=== PATIENT | male | born 1965 | race Caucasian/White ===

== ENCOUNTER 2018-12-21 15:54 | Inpatient (IN) | payer OTHER ==
[~2018-12-21] VITALS: Ht 180.3 cm; Wt 123.8 kg
--- NOTE | 2018-12-21 16:20 | NUR ---
damien came in with the c/o "Cough/congestion/fever started saturday. Not better". on room air, breathing evenly and unlabored. connected to the monitor and pulse ox. kept comfortable, will continue to monitor accordingly.
[2018-12-21 17:28] LABS: CALCIUM, SERUM 8.7 mg/dL (8.5-10.1); CARBON DIOXIDE 23 mmol/L (21-32); CHLORIDE 95 mmol/L (98-107); CREATININE 2.7 mg/dL (0.6-1.3); GLUCOSE 106 mg/dL (74-106); POTASSIUM 4.7 mmol/L (3.5-5.1); SODIUM SERUM 131 mmol/L (136-145); UREA NITROGEN, BLOOD 37 mg/dL (7-18)
[2018-12-21] MEDS ORDERED: ACETAMINOPHEN ES 500 MG TABLET PO ONE (17:30)
[2018-12-21] MEDS ORDERED: ALBUTEROL FS 2.5 MG/3 ML VIAL.NEB NEB ONE (17:30)
[2018-12-21] MEDS ORDERED: IV NS 0.9% 1,000 ML BAG IV ONE (17:30)
[2018-12-21] MEDS ORDERED: IPRATROPIUM NEB FS 0.5 MG/2.5 ML AMPUL.NEB NEB ONE (17:30)
[2018-12-21 17:35] LABS: ALANINE AMINOTRANSFERASE 44 U/L (12-78); ALBUMIN 3.5 g/dL (3.4-5.0); ALKALINE PHOSPHATASE 59 U/L (46-116); ASPARTATE AMINOTRANSFERASE 24 U/L (15-37); BILIRUBIN,DIRECT 0.3 mg/dL (0.0-0.2); BILIRUBIN,TOTAL 1.4 mg/dL (0.2-1.0); TOTAL PROTEIN, SERUM 6.9 g/dL (6.4-8.2)
[2018-12-21] MEDS ORDERED: ACETAMINOPHEN ES 500 MG TABLET ONE (17:36)
[2018-12-21 17:48] LABS: BASOPHILS % (AUTO) 0.1 % (0.0-2.0); HEMATOCRIT 38 % (39-51); LYMPHOCYTES # (AUTO) 0.4 /CMM (0.8-4.8); LYMPHOCYTES % (AUTO) 2.9 % (20.0-44.0); MEAN CORPUSCULAR HGB CONC 35 g/dl (31.0-36.0); MEAN CORPUSCULAR VOLUME 93 fL (80-96); MONOCYTES # (AUTO) 0.9 /CMM (0.1-1.30); NEUTROPHILS # (AUTO) 11.9 /CMM (1.8-8.9); PLATELET COUNT (AUTO) 106 /CMM (150-450); RED BLOOD CELL COUNT(AUTO) 4.07 MIL/uL (4.5-6.0); WHITE BLOOD COUNT (AUTO) 13.3 K/uL (4.3-11.0)
[2018-12-21] MEDS ORDERED: IPRATROPIUM NEB FS 0.5 MG/2.5 ML AMPUL.NEB ONE (17:56)
[2018-12-21] MEDS ORDERED: ALBUTEROL FS 2.5 MG/3 ML VIAL.NEB ONE (17:56)
[2018-12-21] MEDS ORDERED: ATOR40TA PO (19:07)
[2018-12-21] MEDS ORDERED: LURA40TA PO (19:07)
[2018-12-21] MEDS ORDERED: HYDR25TA4 PO (19:07)
[2018-12-21] MEDS ORDERED: LISI10TA5 PO (19:07)
[2018-12-21] MEDS ORDERED: GUAN4TAB3 PO (19:07)
[2018-12-21] MEDS ORDERED: LANS30CA56 PO (19:07)
[2018-12-21] MEDS ORDERED: ASPI-1395 PO (19:07)
[2018-12-21] MEDS ORDERED: BUPR300T54 PO (19:07)
--- NOTE | 2018-12-21 19:24 | NUR ---
Chiquis ellington in [facility] - 12/21/18 at 1925 by CASSY Denia CHANG)
--- NOTE | 2018-12-21 19:25 | NUR ---
MEHUL ([facility])
--- NOTE | 2018-12-21 19:27 | NUR ---
endorsed to Otoniel PETERS for salvador.
[2018-12-21] MEDS ORDERED: LEVOFLOXACIN 500 MG /D5W 100ML 500 MG/100 ML PIGGYBACK IV ONE (20:00)
--- NOTE | 2018-12-21 20:24 | NUR ---
URINE COLLECTED AND SENT TO LAB
[2018-12-21] MEDS ORDERED: LEVOFLOXACIN 500 MG /D5W 100ML 100 ML IV ONE (20:25)
[2018-12-21 20:47] LABS: APPEARANCE,URINE CLEAR (CLEAR); BILIRUBIN,URINE NEGATIVE (NEGATIVE); BLOOD, URINE NEGATIVE Ery/uL (NEGATIVE); COLOR,URINE YELLOW (YELLOW); KETONES,URINE TRACE (NEGATIVE); LEUKOCYTE ESTERASE ,URINE NEGATIVE (NEGATIVE); NITRITE, URINE NEGATIVE (NEGATIVE); PH,URINE 6.5 (5.0-8.0); PROTEIN,URINE NEGATIVE (NEGATIVE); UGLUCOSE NEGATIVE (NEGATIVE)
[2018-12-21 20:53] LABS: BACTERIA,URINE None seen /HPF (None Seen); RBC,URINE 0-2 /HPF (0-2); SQUAMOUS EPITHELIAL CELL,UR 0-2 /HPF (None Seen); WBC,URINE 0-2 /HPF (0-3)
[2018-12-21] MEDS ORDERED: ONDANSETRON HCL/PF 4 MG/2 ML VIAL IVP PRN (21:00)
[2018-12-21] MEDS ORDERED: MAG HYDROX/AL HYDROX/SIMETH 30 ML UDC PO PRN (21:00)
[2018-12-21] MEDS ORDERED: MAGNESIUM HYDROXIDE 30 ML UDC PO PRN (21:00)
[2018-12-21] MEDS ORDERED: Z GUARD REMEDY 2 OZ OINT TP PRN (21:00)
--- NOTE | 2018-12-21 21:37 | NUR ---
REPORT GIVEN TO LORRAINE GAGNON FOR SKINNY
[2018-12-21 21:41] VITALS: BP 92/53
--- NOTE | 2018-12-21 21:50 | NUR ---
CRIMINAL PSYCHOLOGIST OPENING NOTES: RECEIVED PT ON ROOM AIR WITH FRIEND AT BEDSIDE. NO SOB NOTED. PT JUST COMPLAINING OF BODY ACHES AND CHILLS. PT HAS IV ON L AC#18G AND IS BEING INFUSED WITH LEVAQUIN AT THIS TIME. PT ALSO HAS IV ON R AC #18G AND IS PATENT AND INTACT. PT TO BE STARTED ON IV FLUIDS AND PLACED ON TELE MONITOR. PT COMPLAINING OF L HIP 8/10 PAIN. BED KEPT IN LOW, LOCKED POSITION, AND SIDE RAILS X 2UP. WILL CONTINUE TO MONITOR PT.
[2018-12-21] MEDS: HYDROCODONE/APAP 5/325MG 1 EACH TABLET PO PRN (22:08)
--- NOTE | 2018-12-21 22:10 | NUR ---
PEARL GLUE DRIER NOTES: PT COMPLAINING OF L HIP 8/10 PAIN. PT WAS ADMINISTERED NORCO 5 PO. ALSO, PT TO GO DOWN FOR X RAY SO HE WOULD LIKE TO BE PAIN MEDICATED BEFORE LEAVING. WILL CONTINUE TO MONITOR.
--- NOTE | 2018-12-21 22:13 | NUR ---
MACHINE I COREMAKER NOTES: DISTRIBUTION SYSTEMS SUPERINTENDENT ACCOMPANIED HIM DOWNSTAIRS FOR X RAY IN WHEELCHAIR.
[2018-12-21] MEDS: IV NS 0.9% 1,000 ML IV PRN (22:38)
--- NOTE | 2018-12-21 23:11 | NUR ---
DECORATING KILN OPERATOR NOTES: PT BACK FROM X RAY.
[2018-12-21] MEDS: ATORVASTATIN 40 MG TABLET PO SCH (23:20)
--- NOTE | 2018-12-21 23:30 | NUR ---
MUSIC BOX MECHANIC NOTES: DR. SPENCER AWARE THAT PT IS ST 110-130S ON MONITOR. NO NEW ORDERS FOR NOW.
--- NOTE | 2018-12-21 23:34 | NUR ---
NM:LUNG V/Q WAS COMPLETED. TECH:RB.
[2018-12-21 23:38] VITALS: BP 92/53
--- NOTE | 2018-12-21 23:47 | NUR ---
SILVERWARE BUFFING MACHINE OPERATOR NOTES: AWAITING FOR ZITHROMAX 500MG IV FROM NURSING SECOND HELPER.
[2018-12-22] VITALS: BP 100/55
--- NOTE | 2018-12-22 00:34 | NUR ---
HIDE SALTER NOTES: AWAITING FOR ZITHROMAX 500MG FROM NURSING DISASTER RECOVERY SPECIALIST. CALLED. NO WINE MAKER.
--- NOTE | 2018-12-22 01:00 | NUR ---
BUSBOY NOTES: DR. SPENCER AT BEDSIDE. ALSO, MADE HIM AWARE THE LUNG SCAN IS PENDING.
[2018-12-22] MEDS ORDERED: AZITHROMYCIN 500 MG VIAL ONE (01:09)
[2018-12-22] MEDS: ACETAMINOPHEN 325 MG TABLET PO PRN (01:26)
--- NOTE | 2018-12-22 01:30 | NUR ---
LOCK AND DAM REPAIRER NOTES: TYLENOL 650MG PO WAS ADMINISTERED BY ANOTHER RN, GHADA FOR A TEMP OF 101.9 ; WILL CONTINUE TO MONITOR
[2018-12-22] MEDS: AZITHROMYCIN 500 MG in IV D5W 250 ML IV SCH ×2 (01:32→21:18)
--- NOTE | 2018-12-22 01:32 | NUR ---
DOUGHNUT FRYER NOTES: LATE ADMIN OF ZITHROMAX. JUST RECEIVED IV.
[2018-12-22 04:23] VITALS: BP_SYST 101; BP_SYST 106; BP_DIAS 51; BP_DIAS 63
--- NOTE | 2018-12-22 04:30 | NUR ---
RELAY SHOP TESTER NOTES: COOLING MEASURES TAKEN PLACE; ICE PACKS PLACED IN BILATERAL UNDERARM AND GROIN AREA. BLANKETS REMOVED WELL. ROOM TEMP SET TO COOL. WILL CONTINUE TO MONITOR TEMP.
[2018-12-22] MEDS: HYDROCODONE/APAP 5/325MG 1 EACH TABLET PO PRN ×4 (05:00→21:27)
--- NOTE | 2018-12-22 05:09 | NUR ---
WASTEWATER SUPERINTENDENT NOTES: NOTIFIED DR. SPENCER THAT PT HAS TEMP 102.4 EVEN WITH COOLING MEASURES TAKEN PLACE AND TYLENOL 650MG GIVEN. NO NEW ORDERS AT THIS TIME. WILL CONTINUE TO MONITOR.
--- NOTE | 2018-12-22 06:44 | NUR ---
SANDWICH ARTIST CLOSING NOTES: ALL NEEDS WERE ATTENDED AND ANTICIPATED FOR. PT KEPT CLEAN, DRY, AND COMFORTABLE. PT RESTING IN BED COMFORTABLY AT THIS TIME. NO SOB NOTED. NO S/S OF DISTRESS. PT SAID BODY ACHES WENT DOWN WITH NORCO 5 THAT WAS ADMINISTERED. PT ON TELE MONITOR AND READING SHOWS ST 130S. PT HAS IV ON LAC #18G AND IS BEING INFUSED WITH IV NS AT 100ML/HR. BED KEPT IN LOW, LOCKED POSITION, AND SIDE RAILS X 2UP. WILL ENDORSE TO AM NURSE FOR SKINNY.
[2018-12-22 07:40] LABS: EOSINOPHILS % (AUTO) 0.1 % (0.0-6.0); HEMATOCRIT 32 % (39-51); HEMOGLOBIN 11.4 g/dL (13.5-17.5); LYMPHOCYTES # (AUTO) 0.2 /CMM (0.8-4.8); LYMPHOCYTES % (AUTO) 2.3 % (20.0-44.0); MEAN CORPUSCULAR HGB CONC 35 g/dl (31.0-36.0); MEAN CORPUSCULAR VOLUME 92 fL (80-96); MONOCYTES # (AUTO) 0.7 /CMM (0.1-1.30); MONOCYTES % (AUTO) 7.8 % (2.0-12.0); NEUTROPHILS # (AUTO) 7.6 /CMM (1.8-8.9); NEUTROPHILS % (AUTO) 89.8 % (43.0-81.0); PLATELET COUNT (AUTO) 82 /CMM (150-450); WHITE BLOOD COUNT (AUTO) 8.5 K/uL (4.3-11.0)
[2018-12-22 07:47] LABS: CALCIUM, SERUM 7.5 mg/dL (8.5-10.1); CREATININE 1.9 mg/dL (0.6-1.3); MAGNESIUM 1.4 mg/dL (1.8-2.4); PHOSPHORUS 2.6 mg/dL (2.5-4.9); POTASSIUM 3.9 mmol/L (3.5-5.1)
[2018-12-22 08:00] VITALS: BP 115/51
--- NOTE | 2018-12-22 08:00 | NUR ---
RN NOTES RECEIVED PATIENT IN THE BED RESTING, A/O X4. PATIENT TELE ST- 110, PATIENT WAS COMPLAINING OF GENERALIZED PAIN. ENCOURAGED TO EXPRESS FEELINGS, AND CONCERNS. PER PATIENT UNABLE TO DESCRIBE HOW IS HE FEELING. V/S TAKEN STABLE. INFUSING NS AT 100 ML/HR ON LEFT AC AREA INTACT. PATIENT USING URINAL, CALL LIGHT WITHIN TO REACH. SEEN BY HOSPITALIST Dr SAMSON. CONTINUED MONITORING.
[2018-12-22] MEDS: Magnesium 1GM/D5W 100ML PREMIX 100 ML IV SCH ×4 (08:37→12:30)
[2018-12-22] MEDS: ASPIRIN EC 81 MG TABLET.DR PO SCH (08:37)
[2018-12-22] MEDS: BUPROPION XL 150 MG TAB.ER.24 PO SCH (08:37)
--- NOTE | 2018-12-22 09:20 | NUR ---
rn notes ADMINISTERED NARCO 5/325 MG PO PRN FOR GENERALIZED PAIN 12/10 PER PATIENT REQUEST, V/S TAKEN BP 134/66, P-129. INFUSING MG 100 MG/ML HR AT THIS TIME. CALL LIGHT WITHIN TO REACH, CONTINUED MONITORING.
[2018-12-22 09:41] LABS: BAND % (MANUAL) 21 % (0.0-5.0); EOSINOPHILS % (MANUAL) 2 % (0-4); LYMPHOCYTES % (MANUAL) 2 % (16-48); MONOCYTES % (MANUAL) 7 % (0-11.0); NEUTROPHILS % (MANUAL) 68 (42-76)
--- NOTE | 2018-12-22 11:01 | NUR ---
RN NOTES MEDICATION WERE ADMINISTERED FOR PAIN EFFECTIVE. PER HAIR SPINNER D/C TELE TO MED [facility]. CONTINUED MONITORING.
[2018-12-22 16:00] VITALS: BP_SYST 101; BP_SYST 97; BP_DIAS 40; BP_DIAS 50
--- NOTE | 2018-12-22 16:34 | NUR ---
rn notes Administered narco 5/325 mg po prn for lower abdominal pain 12/10 per patient s request, v/s taken bp , also get order for breathing treatment q 4 hr. bp-97/50, p-123. continued monitoring. patient on o2-2l nc. call light within to reach, continued monitoring.
[2018-12-22] MEDS: ALBUTEROL FS 2.5 MG/0.5 ML VIAL.NEB NEB SCH ×2 (17:08→20:47)
[2018-12-22 17:21] LABS: CREATININE, URINE 202.1 MG/DL (30.0-125.0)
--- NOTE | 2018-12-22 17:57 | NUR ---
RN NOTES MEDICATION WERE ADMINISTERED FOR PAIN EFFECTIVE, ALS PATIENT TAKE BREATHING TREATMENT BY RT. CHEST X-RAY DONE BY 2 VIEWS. PATIENT EATING DINNER. CALL LIGHT WITHIN TO REACH. CONTINUED MONITORING.
[2018-12-22] MEDS: IV NS 0.9% 1,000 ML IV PRN (18:51)
--- NOTE | 2018-12-22 19:30 | NUR ---
MS RN OPENING NOTES: RECEIVED PT ON 2LPM VIA NC AND IS TOLERATING WELL. NO S/S OF DISTRESS AT THIS TIME. "I FEEL BETTER THAN I DID LAST NIGHT." PT HAS IV ON R FOREARM #22G AND IS BEING INFUSED WITH IV NS AT 100ML/HR. BED KEPT IN LOW, LOCKED POSITION, AND SIDE RAILS X 2UP. WILL CONTINUE TO MONITOR PT.
[2018-12-22] MEDS: LEVOFLOXACIN 750 MG /D5W 150ML 750 MG in PREMIX 1 EA IV SCH (20:00)
[2018-12-22 20:12] VITALS: BP 94/61
[2018-12-22] MEDS: ATORVASTATIN 40 MG TABLET PO SCH (21:18)
--- NOTE | 2018-12-22 21:29 | NUR ---
MS RN NOTES: PT COMPLAINING OF BILATERAL LEG 9/10 PAIN. PT WAS ADMINISTERED NORCO 5 PO. WILL CONTINUE TO MONITOR.
[2018-12-23] MEDS: ALBUTEROL FS 2.5 MG/0.5 ML VIAL.NEB NEB SCH ×7 (00:02→23:30)
--- NOTE | 2018-12-23 01:25 | NUR ---
MS RN NOTES: PAGED DR. SPENCER. AWAITING FOR CALLBACK.
[2018-12-23] MEDS ORDERED: TEMAZEPAM 15 MG CAPSULE PO PRN (01:30)
--- NOTE | 2018-12-23 01:31 | NUR ---
MS RN NOTES: INFORMED DR. SPENCER THAT PT IS VERY IRRITABLE AND WANTS TO GO TO SLEEP. GOT ORDER FOR RESTORIL 15MG PO ONE TIME ORDER ONLY.
[2018-12-23] MEDS ORDERED: TEMAZEPAM 15 MG CAPSULE PO ONE (02:00)
[2018-12-23] MEDS: HYDROCODONE/APAP 5/325MG 1 EACH TABLET PO PRN ×2 (05:12→12:48)
[2018-12-23 05:14] VITALS: BP 110/55
--- NOTE | 2018-12-23 05:15 | NUR ---
MS RN NOTES: PT COMPLAINING OF 8/10 BILATERAL LOWER LEG PAIN. PT WAS ADMINISTERED NORCO 5 PO. WILL CONTINUE TO MONITOR.
[2018-12-23] MEDS: IV NS 0.9% 1,000 ML IV PRN ×2 (05:26→20:41)
--- NOTE | 2018-12-23 06:37 | NUR ---
MS RN CLOSING NOTES: ALL NEEDS WERE ATTENDED AND ANTICIPATED FOR. PT SITTING UP IN BED AT THIS TIME. PT ON 2LPM VIA NC AND IS TOLERATING WELL. PT IRRITABLE AND WOULD LIKE TO GO HOME. PT HAS IV ON R FOREARM #22G AND IS BEING INFUSED WITH IV NS AT 100ML/HR. BED KEPT IN LOW, LOCKED POSITION, AND SIDE RAILS X 2UP. PAIN MANAGED WITH NORCO 5 PO GIVEN AT 0512AM. WILL ENDORSE TO AM NURSE FOR SKINNY.
[2018-12-23 06:41] LABS: CALCIUM, SERUM 7.9 mg/dL (8.5-10.1); CREATININE 1.5 mg/dL (0.6-1.3); POTASSIUM 3.6 mmol/L (3.5-5.1)
--- NOTE | 2018-12-23 07:30 | NUR ---
RN OPENING NOTES PT AWAKE AND SITTING AT SIDE OF BED. NO COMPLAINTS OF PAIN, SOB OR DISTRESS AT THIS TIME. PT HAS A RIGHT FOREARM #22 IV INTACT AND RUNNING NS @100ML/HR. SAFETY PRECAUTIONS IN PLACE, BED IN LOWEST LOCKED POSITION, X2 SIDE RAILS UP AND CALL LIGHT WITHIN REACH. WILL CONTINUE TO MONITOR.
[2018-12-23 08:00] VITALS: BP 104/69
[2018-12-23] MEDS: ASPIRIN EC 81 MG TABLET.DR PO SCH (08:48)
[2018-12-23] MEDS: LACTOBACILLUS RHAMNOSUS GG 1 EACH CAP.SPRINK PO SCH ×2 (08:48→16:20)
[2018-12-23] MEDS: BUPROPION XL 150 MG TAB.ER.24 PO SCH (08:48)
[2018-12-23 16:00] VITALS: BP 104/57
--- NOTE | 2018-12-23 18:21 | NUR ---
RN CLOSING NOTES PT AWAKE AND SITTING IN CHAIR AT SIDE OF BED. ALL PATIENT NEEDS MET DURING SHIFT. PT HAS A RIGHT FOREARM #22 IV INTACT AND RUNNING NS @100ML/HR. SAFETY PRECAUTIONS IN PLACE, BED IN LOWEST LOCKED POSITION, X2 SIDE RAILS UP AND CALL LIGHT WITHIN REACH. WILL CONTINUE ENDORSE TO THERAPEUTIC RECREATION SPECIALIST NURSE FOR CONTINUITY OF CARE.
[2018-12-23] MEDS: ACETAMINOPHEN 325 MG TABLET PO PRN (19:43)
[2018-12-23 20:00] VITALS: BP 94/60
--- NOTE | 2018-12-23 20:07 | NUR ---
MS/TELE/RN ON INITIAL ROUND AT 1940, PATIENT WAS AWAKE, ALERT, ORIENTED, WITH C/O LEG PAIN AND REQUESTED TYLENOL. TYLENOL 650 MG PO WAS GIVEN ORDERED. WILL MONITOR.
[2018-12-23] MEDS: LEVOFLOXACIN 750 MG /D5W 150ML 750 MG in PREMIX 1 EA IV SCH (21:04)
[2018-12-23] MEDS: AZITHROMYCIN 500 MG in IV D5W 250 ML IV SCH (22:22)
[2018-12-23] MEDS: ATORVASTATIN 40 MG TABLET PO SCH (22:22)
[2018-12-24] MEDS: ACETAMINOPHEN 325 MG TABLET PO PRN ×2 (02:05→08:55)
[2018-12-24] MEDS: ALBUTEROL FS 2.5 MG/0.5 ML VIAL.NEB NEB SCH ×6 (03:15→23:30)
--- NOTE | 2018-12-24 06:12 | NUR ---
MS/TELE/RN PATIENT IS AWAKE, IS IN THE NURSING STATION AT THIS TIME, NO CHANGE IN CONDITION, HAD AN ON AND OFF SLEEP THE WHOLE SHIFT. ALL NEEDS ATTENDED AT THIS TIME. WILL CONTINUE TO MONITOR.
[2018-12-24 06:38] LABS: CALCIUM, SERUM 7.8 mg/dL (8.5-10.1); CREATININE 1.5 mg/dL (0.6-1.3); MAGNESIUM 2.3 mg/dL (1.8-2.4); PHOSPHORUS 2.1 mg/dL (2.5-4.9); POTASSIUM 3.4 mmol/L (3.5-5.1)
[2018-12-24 06:39] LABS: BASOPHILS % (AUTO) 0.2 % (0.0-2.0); EOSINOPHILS % (AUTO) 0.1 % (0.0-6.0); HEMATOCRIT 26 % (39-51); HEMOGLOBIN 9.5 g/dL (13.5-17.5); LYMPHOCYTES # (AUTO) 0.4 /CMM (0.8-4.8); MEAN CORPUSCULAR HGB CONC 36 g/dl (31.0-36.0); MEAN CORPUSCULAR VOLUME 92 fL (80-96); MONOCYTES # (AUTO) 0.5 /CMM (0.1-1.30); MONOCYTES % (AUTO) 8.7 % (2.0-12.0); NEUTROPHILS # (AUTO) 4.3 /CMM (1.8-8.9); PLATELET COUNT (AUTO) 65 /CMM (150-450); RED BLOOD CELL COUNT(AUTO) 2.88 MIL/uL (4.5-6.0); WHITE BLOOD COUNT (AUTO) 5.2 K/uL (4.3-11.0)
--- NOTE | 2018-12-24 07:28 | NUR ---
RN OPENING NOTE PT RECEIVED IN BED AT LOWEST AND LOCKED POSITION WITH SIDE RAILS UP X2, A/O X4 BREATHING EVEN AND UNLABORED ON 2L VIA NC, NO S/S OF ANY DISTRESS OR PAIN NOTED AT THIS TIME, IV IS PATENT AND INTACT BUT FLUIDS NOT CURRENTLY RUNNING DUE TO PT WANTING TO WALK AROUND THE UNIT, SAFETY PRECAUTIONS IN PLACE, CALL LIGHT WITHIN REACH, WILL MONITOR ACCORDINGLY
[2018-12-24 07:38] LABS: BAND % (MANUAL) 1 % (0.0-5.0); LYMPHOCYTES % (MANUAL) 9 % (16-48); MONOCYTES % (MANUAL) 5 % (0-11.0); NEUTROPHILS % (MANUAL) 84 (42-76); REACTIVE LYMPHOCYTES 1 % (0-0)
[2018-12-24 08:00] VITALS: BP 94/54
--- NOTE | 2018-12-24 08:00 | NUR ---
RN NOTE PT WANTED WALLET TO BE BROUGHT BACK UP FROM SAFE. WALLET BROUGHT BACK UP TO PT AT THIS TIME. INFORMED THAT THE NURSING PRECISION CROP MANAGER BEST SAID THAT WE WOULD NOT BE LIABLE IF HIS WALLET IS LOST BECAUSE HE REQUESTED IT TO BE REMOVED FROM THE SAFE. HE WAS MADE AWARE AND HE CONSENT AND WAS OKAY WITH IT. WALLET GIVEN.
[2018-12-24] MEDS: LACTOBACILLUS RHAMNOSUS GG 1 EACH CAP.SPRINK PO SCH ×2 (08:55→17:23)
[2018-12-24] MEDS: BUPROPION XL 150 MG TAB.ER.24 PO SCH (08:55)
[2018-12-24] MEDS: ASPIRIN EC 81 MG TABLET.DR PO SCH (08:55)
[2018-12-24] MEDS: DOCUSATE SODIUM 100 MG CAPSULE PO SCH ×2 (09:06→17:23)
[2018-12-24] MEDS: NICOTINE PATCH (7MG) 7 MG PATCH.TD24 TD SCH (09:25)
[2018-12-24] MEDS: ENSURE ENLIVE CHOC 237 ML CAN PO SCH ×2 (10:36→17:24)
[2018-12-24] MEDS ORDERED: POTASSIUM CHLORIDE 10 MEQ TABLET.SA PO ONE (11:00)
[2018-12-24] MEDS ORDERED: K PHOS NEUTRAL 250 MG TABLET PO ONE (13:00)
[2018-12-24] MEDS: HYDROCODONE/APAP 5/325MG 1 EACH TABLET PO PRN ×2 (13:43→23:06)
[2018-12-24] MEDS: IV NS 0.9% 1,000 ML IV PRN (15:58)
[2018-12-24 16:00] VITALS: BP 97/46
[2018-12-24] MEDS: CLINDAMYCIN 600 MG in IV D5W 50 ML IV SCH (17:24)
--- NOTE | 2018-12-24 18:44 | NUR ---
RN CLOSING NOTE PT IN BED AT LOWEST AND LOCKED POSITION WITH SIDE RAILS UP X2, A/O X4 BREATHING EVEN AND UNLABORED ON 2L VIA NC WITH NO S/S OF ANY DISTRESS OR PAIN AT THIS TIME, IV IS PATENT AND INTACT WITH IVF INFUSING, SAFETY PRECAUTIONS IN PLACE, CALL LIGHT WITHIN REACH, ALL NEEDS ATTENDED TO, WILL ENDORSE TO NIGHT RN FOR SKINNY.
[2018-12-24] MEDS: LORATADINE 10 MG TABLET PO SCH (18:50)
[2018-12-24] MEDS: diphenhydrAMINE HCL 25 MG CAPSULE PO PRN (18:50)
--- NOTE | 2018-12-24 19:59 | NUR ---
MS/BONNIE/RN ON INITIAL ROUND AT 0, RECEIVED PATIENT PATIENT IN HIS ROOM, ON HIS BED, AWAKE, ALERT, ORIENTED, COMFORTABLE, NO C/O PAIN, NO DISTRESS NOTED, CALL LIGHT IN REACH. WILL MONITOR.
[2018-12-24] MEDS ORDERED: AZITHROMYCIN 250 MG TABLET PO SCH (20:00)
[2018-12-24 20:25] VITALS: BP 125/66
[2018-12-24] MEDS: ATORVASTATIN 40 MG TABLET PO SCH (22:03)
[2018-12-25] MEDS: diphenhydrAMINE HCL 25 MG CAPSULE PO PRN (01:01)
--- NOTE | 2018-12-25 01:23 | NUR ---
MS/TELE/RN PATIENT IS SLEEPING, AROUSES EASILY, APPEAR COMFORTABLE, NO SIGNS OF DISTRESS NOTED, SITTER AT BEDSIDE. WILL CONTINUE TO MONITOR.
[2018-12-25] MEDS: CLINDAMYCIN 600 MG in IV D5W 50 ML IV SCH ×2 (02:03→09:17)
[2018-12-25] MEDS: ALBUTEROL FS 2.5 MG/0.5 ML VIAL.NEB NEB SCH ×4 (03:29→15:30)
[2018-12-25] MEDS: IV NS 0.9% 1,000 ML IV PRN (05:00)
--- NOTE | 2018-12-25 06:16 | NUR ---
MS/TELE/RN PATIENT IS SLEEPING, AROUSES EASILY, NO DISTRESS NOTED, CALL LIGHT IN REACH. ALL NEEDS ATTENDED AT THIS TIME, WILL CONTINUE TO MONITOR.
[2018-12-25 06:39] LABS: BASOPHILS % (AUTO) 0.1 % (0.0-2.0); EOSINOPHILS % (AUTO) 0.1 % (0.0-6.0); HEMATOCRIT 29 % (39-51); HEMOGLOBIN 10.2 g/dL (13.5-17.5); LYMPHOCYTES # (AUTO) 0.9 /CMM (0.8-4.8); LYMPHOCYTES % (AUTO) 14.6 % (20.0-44.0); MEAN CORPUSCULAR HGB CONC 36 g/dl (31.0-36.0); MEAN CORPUSCULAR VOLUME 92 fL (80-96); MONOCYTES # (AUTO) 0.8 /CMM (0.1-1.30); NEUTROPHILS # (AUTO) 4.6 /CMM (1.8-8.9); NEUTROPHILS % (AUTO) 72.2 % (43.0-81.0); PLATELET COUNT (AUTO) 93 /CMM (150-450); RED BLOOD CELL COUNT(AUTO) 3.14 MIL/uL (4.5-6.0); WHITE BLOOD COUNT (AUTO) 6.3 K/uL (4.3-11.0)
[2018-12-25 06:58] LABS: CALCIUM, SERUM 8.1 mg/dL (8.5-10.1); CREATININE 1.3 mg/dL (0.6-1.3); MAGNESIUM 2.1 mg/dL (1.8-2.4); PHOSPHORUS 2.4 mg/dL (2.5-4.9); POTASSIUM 3.3 mmol/L (3.5-5.1)
--- NOTE | 2018-12-25 07:52 | NUR ---
MS RN OPENING NOTES RECEIVED PATIENT IN BED IN MODERATE HIGH BACK REST. A/O X4. IVF ON LEFT HAND #20 WITH NS @ 100ML/HR. PATENT AND INTACT. NO COMPLAIN OF PAIN AT THIS TIME. SAFETY PRECAUTION IN PLACE, BED IN LOW LOCKED POSITION, SIDE RAILS UP X2. CALL LIGHT WITHIN EASY REACH. WILL CONTINUE TO MONITOR.
[2018-12-25 08:00] VITALS: BP 116/72
[2018-12-25] MEDS ORDERED: POTASSIUM CHLORIDE 20 MEQ TAB.PRT.SR PO ONE (08:00)
[2018-12-25 08:04] LABS: BAND % (MANUAL) 2 % (0.0-5.0); LYMPHOCYTES % (MANUAL) 16 % (16-48); MONOCYTES % (MANUAL) 12 % (0-11.0); NEUTROPHILS % (MANUAL) 70 (42-76)
[2018-12-25] MEDS: NICOTINE PATCH (7MG) 7 MG PATCH.TD24 TD SCH (08:10)
[2018-12-25] MEDS: ASPIRIN EC 81 MG TABLET.DR PO SCH (08:10)
[2018-12-25] MEDS: LORATADINE 10 MG TABLET PO SCH (08:11)
[2018-12-25] MEDS: DOCUSATE SODIUM 100 MG CAPSULE PO SCH (08:11)
[2018-12-25] MEDS: BUPROPION XL 150 MG TAB.ER.24 PO SCH (08:11)
[2018-12-25] MEDS: LACTOBACILLUS RHAMNOSUS GG 1 EACH CAP.SPRINK PO SCH (08:11)
[2018-12-25] MEDS: ENSURE ENLIVE CHOC 237 ML CAN PO SCH (08:16)
[2018-12-25] MEDS ORDERED: DIPH25CA49 PO (08:36)
[2018-12-25] MEDS ORDERED: LORA10TA7 PO (08:36)
[2018-12-25] MEDS ORDERED: LACT1CAP72 PO (08:36)
[2018-12-25] MEDS ORDERED: CLIN300C11 PO (08:36)
--- NOTE | 2018-12-25 08:55 | NUR ---
RN NOTES PT WITH LOW LEVEL POTASSIUM 3.3 TODAY, ADMINISTERED K-DUR 20 MEQ P.O. ORDERED. WILL CONTINUE TO MONITOR.
[2018-12-25] MEDS ORDERED: K PHOS NEUTRAL 250 MG TABLET PO ONE (11:30)
--- NOTE | 2018-12-25 12:15 | NUR ---
MS RN DISCHARGED NOTES PATIENT DISCHARGED TO HOME IN STABLE CONDITION. A/O X 4. ABLE TO MAKE NEEDS KNOWN. V/S TAKEN, STABLE AND RECORDED. PATIENT'S IV ACCESS REMOVED AND APPLIED PRESSURE DRESSING. SKIN IS INTACT. NAME ARM BAND REMOVED. ALL BELONGINGS CHECKED AND SIGNED. HEALTH TEACHINGS/DISCHARGED INSTRUCTIONS GIVEN AND VERBALIZED UNDERSTANDING. PATIENT LEFT UNIT VIA WHEELCHAIR WITH NO ACUTE SIGNS OF DISTRESS @ 1210 ACCOMPANIED BY HOSPITAL STAFF. CHARGE NURSE AWARE OF DISCHARGED.
== END 2018-12-25 12:10 | disposition home or self-care (01) | DRG 720 ==
LOC: ER 15:58 → TELE 20:54 → MED 12-22 13:02
PROVIDERS: ADMIT Internal Medicine; ATTEND Student in an Organized Health Care Education/Training Program
DX: A41.9 Sepsis, unspecified organism (principal); J96.01 Acute respiratory failure with hypoxia; E43 Unspecified severe protein-calorie malnutrition; N17.0 Acute kidney failure with tubular necrosis; E86.0 Dehydration; Z68.38 Body mass index [BMI] 38.0-38.9, adult; J02.0 Streptococcal pharyngitis; F32.9 Major depressive disorder, single episode, unspecified; F41.9 Anxiety disorder, unspecified; E78.5 Hyperlipidemia, unspecified; E83.42 Hypomagnesemia; J45.909 Unspecified asthma, uncomplicated; E66.9 Obesity, unspecified; Z88.0 Allergy status to penicillin; I12.9 Hypertensive chronic kidney disease with stage 1 through stage 4 chronic kidney disease, or unspecified chronic kidney disease; N18.9 Chronic kidney disease, unspecified; F17.210 Nicotine dependence, cigarettes, uncomplicated
CPT/HCPCS: 36415; 71045-TC; 71046; 76770-TC; 78582; 80048-TC; 80076-TC; 81000-TC; 82570-TC; 83605-TC; 83735-TC; 84100-TC; 84300-TC; 84484-TC; 85025-TC; 85378-TC; 85730-TC; 86403-TC; 87040-TC; 87070-TC; 87081-TC; 87086-TC; 93970-TC; 94799-TC; A4216; A9540; A9567; G0378; J0456; J1956; J3475; J3490; J7030; J7060; Q0163